=== PATIENT | male | born 1950 | race Two or more races ===

== ENCOUNTER 2016-12-30 11:15 | Emergency (ER) | payer MEDICARE, MEDICAID ==
[~2016-12-30] VITALS: Ht 165.1 cm; Wt 78.9 kg
[2016-12-30 11:18] VITALS: BP 148/68
== END 2016-12-30 12:41 | disposition home or self-care (01) ==
LOC: ER 11:24
DX: Z00.8 Encounter for other general examination (principal); E11.9 Type 2 diabetes mellitus without complications
CPT/HCPCS: 99283; A4606; Z7610